=== PATIENT | female | born 1965 | race Caucasian/White ===

== ENCOUNTER → 2020-02-10 | Outpatient (CLI) | payer OTHER ==
[~2020-02-10] MED LIST: NO HOME MEDICATIONS
== END ==
LOC: MC.RAD 07:58
DX: Z12.31 Encounter for screening mammogram for malignant neoplasm of breast (principal); N64.89 Other specified disorders of breast

== ENCOUNTER → 2020-02-18 | Outpatient (CLI) | payer OTHER | LOC: MC.RAD 07:24 | DX: N64.89 Other specified disorders of breast (principal) ==